=== PATIENT | male | born 1960 | race American Indian/Alaskan Native ===

== ENCOUNTER 2017-02-18 14:13 | Emergency (ER) | payer SELFPAY ==
[2017-02-18 15:29] VITALS: BP 162/88
--- NOTE | 2017-02-18 18:16 | Emergency Department Report ---
ED Lower Extremity HPI - General Chief Complaint: Extremity Injury, Lower Stated Complaint: LEFT ANKLE SWELLING Time Seen by Provider: 02/18/17 18:10 Source: patient Mode of arrival: Ambulatory Limitations: No Limitations - History of Present Illness Initial Comments: This is a 56-year-old male nontoxic, well nourished in appearance, no acute signs of distress presents to the ED complaining of left ankle swelling 2 week period based that he has a history of gout in the same region and takes colchicine 0.6 mg that is provided by Jacinta Garcia NP. Patient stated he was not able to follow up with his provider due to no availability of appointments and stated he came to the ER to get a refill of his colchicine. He denies any trauma to the region. Denies fever, chills, nausea, vomiting, chest and short of breath. Denies numbness or tingling. Denies joint redness. Denies decrease in motion or abnormal gait. Patient denies any allergies or past medical history. Complaint: ankle injury -: Gradual, week(s) (2) Injury: Ankle: Left Severity: mild Severity scale (0 -10): 4 Improves With: other (Colchicine) Worsens With: nothing Associated Symptoms: swelling, ambulatory. denies: snap/pop sensation, numbness , tingling, unable to bear weight, able to partially bear weight - Related Data Previous Rx's Medication Instructions Recorded Last Taken Type Metoprolol [Lopressor TAB] 25 mg PO BID #60 tablet 03/09/16 Unknown Rx amLODIPine 10 mg PO DAILY #60 03/09/16 Unknown Rx HYDROcodone/APAP 5-325 [Hiram 1 each PO Q6HR PRN #12 tablet 03/12/16 Unknown Rx 5-325 mg TAB] Ibuprofen [Motrin] 600 mg PO Q8H PRN #21 tablet 03/12/16 Unknown Rx methylPREDNISolone [Medrol] 4 mg PO QAM #1 tab.ds.pk 03/12/16 Unknown Rx Colchicine 0.6 mg PO DAILY #30 capsule 02/18/17 Unknown Rx Allergies Allergy/AdvReac Type Severity Reaction Status Date / Time No Known Allergies Allergy Verified 03/09/16 03:20 ED Review of Systems ROS: Stated complaint: LEFT ANKLE SWELLING Other details as noted in HPI Constitutional: denies: chills, fever Eyes: denies: eye pain, eye discharge, vision change ENT: denies: ear pain, throat pain Respiratory: denies: cough, shortness of breath, wheezing Cardiovascular: denies: chest pain, palpitations Endocrine: no symptoms reported Gastrointestinal: denies: abdominal pain, nausea, diarrhea Genitourinary: denies: urgency, dysuria Musculoskeletal: denies: back pain, joint swelling, arthralgia Skin: denies: rash, lesions Neurological: denies: headache, weakness, paresthesias Psychiatric: denies: anxiety, depression Hematological/Lymphatic: denies: easy bleeding, easy bruising ED Past Medical Hx - Past Medical History Previous Medical History?: Yes Hx Hypertension: Yes Hx Asthma: Yes Additional medical history: Gout - Surgical History Past Surgical History?: No - Social History Smoking Status: Current Every Day Smoker Substance Use Type: Prescribed - Medications Home Medications: Home Medications Medication Instructions Recorded Confirmed Last Taken Type Metoprolol [Lopressor TAB] 25 mg PO BID #60 tablet 03/09/16 Unknown Rx amLODIPine 10 mg PO DAILY #60 03/09/16 Unknown Rx HYDROcodone/APAP 5-325 [Hiram 1 each PO Q6HR PRN #12 tablet 03/12/16 Unknown Rx 5-325 mg TAB] Ibuprofen [Motrin] 600 mg PO Q8H PRN #21 tablet 03/12/16 Unknown Rx methylPREDNISolone [Medrol] 4 mg PO QAM #1 tab.ds.pk 03/12/16 Unknown Rx Colchicine 0.6 mg PO DAILY #30 capsule 02/18/17 Unknown Rx ED Physical Exam - General Limitations: No Limitations General appearance: alert, in no apparent distress - Head Head exam: Present: atraumatic, normocephalic, normal inspection - Eye Eye exam: Present: normal appearance, PERRL, EOMI. Absent: scleral icterus, conjunctival injection, nystagmus, periorbital swelling, periorbital tenderness Pupils: Present: normal accommodation - ENT ENT exam: Present: normal exam, normal orophraynx, mucous membranes moist, TM's normal bilaterally, normal external ear exam - Neck Neck exam: Present: normal inspection, full ROM. Absent: tenderness, meningismus, lymphadenopathy, thyromegaly - Respiratory Respiratory exam: Present: normal lung sounds bilaterally. Absent: respiratory distress, wheezes, rales, rhonchi, stridor, chest wall tenderness, accessory muscle use, decreased breath sounds, prolonged expiratory - Cardiovascular Cardiovascular Exam: Present: regular rate, normal rhythm, normal heart sounds. Absent: bradycardia, tachycardia, irregular rhythm, systolic murmur, diastolic murmur, rubs, gallop - GI/Abdominal GI/Abdominal exam: Present: soft, normal bowel sounds. Absent: distended, tenderness, guarding, rebound, rigid, diminished bowel sounds - Rectal Rectal exam: Present: deferred - Extremities Exam Extremities exam: Present: normal inspection, full ROM, tenderness, normal capillary refill. Absent: pedal edema, joint swelling, calf tenderness - Expanded Lower Extremity Exam Left Hip exam: Present: normal inspection, full ROM Upper Leg exam: Present: normal inspection, full ROM Knee exam: Present: normal inspection, full ROM Lower Leg exam: Present: normal inspection, full ROM. Absent: Martin's sign Ankle exam: Present: normal inspection, full ROM, tenderness, swelling. Absent : abrasion, laceration, ecchymosis, deformity, crepidus, dislocation, erythema, anterior draw sign Foot/Toe exam: Present: normal inspection, full ROM Neuro vascular tendon exam: Present: no vascular compromise. Absent: pulse deficit, abnormal cap refill, motor deficit, tendon deficit, extremity cold to touch, pallor, abnormal 2-point discrimination, decreased fine/light touch, foot drop, peroneal nerve deficit, significant pain with passive ROM of distal joint Gait: Positive: observed and normal - Back Exam Back exam: Present: normal inspection, full ROM. Absent: tenderness, CVA tenderness (R), CVA tenderness (L), muscle spasm, paraspinal tenderness, vertebral tenderness, rash noted - Neurological Exam Neurological exam: Present: alert, oriented X3, CN II-XII intact, normal gait, reflexes normal - Psychiatric Psychiatric exam: Present: normal affect, normal mood - Skin Skin exam: Present: warm, dry, intact, normal color. Absent: rash ED Course Vital Signs 02/18/17 15:25 Temperature 97.5 F L Pulse Rate 73 Respiratory 18 Rate Blood Pressure 162/88 O2 Sat by Pulse 97 Oximetry - Reevaluation(s) Reevaluation #1: 02/18/17 18:15 Patient is speaking in full sentences with no signs of distress noted. ED Lower Extremity MDM - Medical Decision Making This 56-year-old male that presents with gout. Patient received prednisone on 25 mg IM ED. Patient's request for refill of colchicine. Patient did receive a refill for colchicine. Patient was instructed to follow-up with a primary care doctor in 3-5 days or if symptoms worsen and continue return to emergency room as soon as possible possible. At time time of discharge, the patient does not seem toxic or ill in appearance. No acute signs of distress noted. Patient agrees to discharge treatment plan of care. No further questions noted by the patient. Critical care attestation.: If time is entered above; I have spent that time in minutes in the direct care of this critically ill patient, excluding procedure time. 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 Prescriptions: Colchicine 0.6 mg PO DAILY #30 capsule Referrals: PRIMARY MD ESTRADA [Primary Care Provider] - 3-5 Days ANALISA MENJIVAR MD [Staff Physician] - 3-5 Days [facility] [Outside] - 3-5 Days [facility] [Outside] - 3-5 Days Forms: Work/School Release Form(ED)
== END 2017-02-18 18:46 | disposition home or self-care (01) ==
LOC: ED 14:13
DX: M10.9 Gout, unspecified (principal); I10 Essential (primary) hypertension; F17.210 Nicotine dependence, cigarettes, uncomplicated
CPT/HCPCS: 96372; 99282; J2930

== ENCOUNTER 2017-08-23 13:02 | Emergency (ER) | payer SELFPAY ==
[2017-08-23] MEDS ORDERED: CATAPRES PO ONE (13:35)
[2017-08-23] MEDS ORDERED: CATAPRES ONE (15:37)
--- NOTE | 2017-08-23 18:45 | Emergency Department Report ---
HPI - General Chief Complaint: High BP Time Seen by Provider: 08/23/17 18:25 - HPI HPI: 56-year-old male has been noncompliant with his medications. Presents to ED with elevated blood pressures. He also complained of left ankle swelling, pain , redness secondary to his history of gout. He denies any fever, chills, night sweats. He is able to ambulate without difficulty. Patient denies any shortness of breath. ED Past Medical Hx - Past Medical History Previous Medical History?: Yes Hx Hypertension: Yes Hx Asthma: Yes Additional medical history: Gout - Surgical History Past Surgical History?: No - Social History Smoking Status: Never Smoker - Medications Home Medications: Home Medications Medication Instructions Recorded Confirmed Last Taken Type Metoprolol [Lopressor TAB] 25 mg PO BID #60 tablet 03/09/16 Unknown Rx HYDROcodone/APAP 5-325 [[place] 1 each PO Q6HR PRN #12 tablet 03/12/16 Unknown Rx 5-325 mg TAB] Ibuprofen [Motrin] 600 mg PO Q8H PRN #21 tablet 03/12/16 Unknown Rx Colchicine 0.6 mg PO DAILY #30 capsule 02/18/17 Unknown Rx ALBUTEROL Inhaler [ProAir HFA 2 puff IH QID PRN #1 inhalation 08/23/17 Unknown Rx Inhaler] Losartan Potassium [Cozaar] 100 mg PO DAILY #30 tablet 08/23/17 Unknown Rx amLODIPine 10 mg PO DAILY #60 08/23/17 Unknown Rx methylPREDNISolone [Medrol Dose 4 mg PO QAM #1 tab.ds.pk 08/23/17 Unknown Rx Chi] ED Review of Systems ROS: Stated complaint: HYPERTENSIVE/GOUT Other details as noted in HPI Comment: All other systems reviewed and negative Constitutional: no symptoms reported Gastrointestinal: denies: abdominal pain, nausea Genitourinary: denies: urgency Musculoskeletal: joint swelling, arthralgia Physical Exam - Physical Exam Vital Signs: Vital Signs 08/23/17 08/23/17 13:24 15:39 Temperature 97.5 F L Pulse Rate 72 72 Respiratory 18 Rate Blood Pressure 191/118 191/118 O2 Sat by Pulse 97 Oximetry Physical Exam: Physical Exam: - General Limitations: No Limitations General appearance: alert, in no apparent distress, obese - Head Head exam: Present: atraumatic, normocephalic - Eye Eye exam: Present: normal appearance - ENT ENT exam: Present: mucous membranes moist - Neck Neck exam: Present: normal inspection - Respiratory Respiratory exam: Present: normal lung sounds bilaterally. Absent: respiratory distress - Cardiovascular Cardiovascular Exam: Present: normal rhythm, tachycardia. Absent: systolic murmur, diastolic murmur, rubs, gallop - GI/Abdominal GI/Abdominal exam: Present: soft, normal bowel sounds - Extremities Exam Extremities exam: Present: Left ankle tenderness, mild edema, good range of motion. - Back Exam Back exam: Present: normal inspection - Neurological Exam Neurological exam: Present: alert, oriented X3 - Psychiatric Psychiatric exam: normal affect and mood - Skin Skin exam: Present: warm, dry, intact, normal color. Absent: rash ED Course Vital Signs 08/23/17 08/23/17 13:24 15:39 Temperature 97.5 F L Pulse Rate 72 72 Respiratory 18 Rate Blood Pressure 191/118 191/118 O2 Sat by Pulse 97 Oximetry ED Medical Decision Making - Lab Data Result diagrams: 08/23/17 18:35 08/23/17 18:35 Critical care attestation.: If time is entered above; I have spent that time in minutes in the direct care of this critically ill patient, excluding procedure time. ED Disposition Clinical Impression: Acute gouty arthritis Hypertension Qualifiers: Hypertension type: essential hypertension Qualified Code(s): I10 - Essential ( primary) hypertension Asthma Qualifiers: Asthma severity: mild Asthma persistence: intermittent Asthma complication type : uncomplicated Qualified Code(s): J45.20 - Mild intermittent asthma, uncomplicated Disposition: - TO HOME OR SELFCARE Is pt being admited?: No Does the pt Need Aspirin: No Condition: Stable Instructions: Asthma (ED), Hypertension (ED) Prescriptions: ALBUTEROL Inhaler [ProAir HFA Inhaler] 2 puff IH QID PRN #1 inhalation PRN Reason: Shortness Of Breath amLODIPine 10 mg PO DAILY #60 Losartan Potassium [Cozaar] 100 mg PO DAILY #30 tablet methylPREDNISolone [Medrol Dose Chi] 4 mg PO QAM #1 tab.ds.pk Referrals: PRIMARY CARE, [Primary Care Provider] - 3-5 Days Forms: Work/School Release Form(ED)
[2017-08-23 18:47] LABS: Basophils # (Auto) 0.1 K/mm3 (0.0-0.1); Eosinophils # (Auto) 0.2 K/mm3 (0.0-0.4); Eosinophils % (Auto) 4.3 % (0.0-4.3); Hematocrit 43.4 % (35.5-45.6); Hemoglobin 14.2 gm/dl (11.8-15.2); Lymphocytes # (Auto) 1.5 K/mm3 (1.2-5.4); Lymphocytes % (Auto) 26.5 % (13.4-35.0); Mean Corpuscular HGB Conc 33 % (32-34); Mean Corpuscular Hemoglobin 27 pg (28-32); Mean Corpuscular Volume 82 fl (84-94); Monocytes # (Auto) 0.4 K/mm3 (0.0-0.8); Monocytes % (Auto) 7.2 % (0.0-7.3); Platelet Count 154 K/mm3 (140-440); Red Blood Count 5.33 M/mm3 (3.65-5.03); Red Cell Distribution Width 16.7 % (13.2-15.2)
[2017-08-23 19:14] LABS: Alanine Aminotransferase 16 units/L (7-56); BUN/Creatinine Ratio 12; Blood Urea Nitrogen 21 mg/dL (9-20); Calcium 8.4 mg/dL (8.4-10.2); Hemolysis Index 8
[2017-08-23 19:27] VITALS: BP 146/89
== END 2017-08-23 20:37 | disposition home or self-care (01) ==
LOC: ED 13:02
DX: M10.9 Gout, unspecified (principal); I10 Essential (primary) hypertension; J45.909 Unspecified asthma, uncomplicated
CPT/HCPCS: 36415; 80053; 84484; 85025; 99283

== ENCOUNTER 2017-10-26 10:39 | Emergency (ER) | payer OTHER ==
[2017-10-26 12:36] LABS: Basophils % (Auto) 0.5 % (0.0-1.8); Eosinophils # (Auto) 0.2 K/mm3 (0.0-0.4); Hematocrit 44.4 % (35.5-45.6); Hemoglobin 14.9 gm/dl (11.8-15.2); Lymphocytes # (Auto) 0.8 K/mm3 (1.2-5.4); Lymphocytes % (Auto) 9.7 % (13.4-35.0); Mean Corpuscular HGB Conc 34 % (32-34); Mean Corpuscular Hemoglobin 27 pg (28-32); Mean Corpuscular Volume 81 fl (84-94); Monocytes # (Auto) 0.5 K/mm3 (0.0-0.8); Monocytes % (Auto) 5.7 % (0.0-7.3); Platelet Count 141 K/mm3 (140-440); Red Blood Count 5.52 M/mm3 (3.65-5.03); Red Cell Distribution Width 16.5 % (13.2-15.2)
[2017-10-26 12:59] LABS: BUN/Creatinine Ratio TNR; Blood Urea Nitrogen TNR mg/dL (9-20)
[2017-10-26 13:00] LABS: Calcium TNR mg/dL (8.4-10.2); Hemolysis Index TNR
[2017-10-26] MEDS ORDERED: NORVASC PO ONE (13:01)
[2017-10-26] MEDS ORDERED: COZAAR PO ONE (13:01)
--- NOTE | 2017-10-26 14:05 | Emergency Department Report ---
ED General Adult HPI - General Chief complaint: High BP Stated complaint: C/O SICK/WEAK Time Seen by Provider: 10/26/17 12:13 Source: patient Mode of arrival: Ambulatory Limitations: No Limitations - History of Present Illness Initial comments: Patient woke up this morning with generalized weakness and fatigue. Patient says that he hasn't had his blood pressure medication in 2 weeks. He feels like this when his blood pressure is high. Denies pain. Afebrile. - Related Data Previous Rx's Medication Instructions Recorded Last Taken Type Metoprolol [Lopressor TAB] 25 mg PO BID #60 tablet 03/09/16 Unknown Rx HYDROcodone/APAP 5-325 [[place]isco 1 each PO Q6HR PRN #12 tablet 03/12/16 Unknown Rx 5-325 mg TAB] Ibuprofen [Motrin] 600 mg PO Q8H PRN #21 tablet 03/12/16 Unknown Rx Colchicine 0.6 mg PO DAILY #30 capsule 02/18/17 Unknown Rx ALBUTEROL Inhaler [ProAir HFA 2 puff IH QID PRN #1 inhalation 08/23/17 Unknown Rx Inhaler] Losartan Potassium [Cozaar] 100 mg PO DAILY #30 tablet 08/23/17 Unknown Rx amLODIPine 10 mg PO DAILY #60 08/23/17 Unknown Rx methylPREDNISolone [Medrol Dose 4 mg PO QAM #1 tab.ds.pk 08/23/17 Unknown Rx Chi] Losartan [Cozaar] 100 mg PO QDAY #60 tablet 10/26/17 Unknown Rx amLODIPine [Norvasc] 10 mg PO DAILY #60 tab 10/26/17 Unknown Rx Allergies Allergy/AdvReac Type Severity Reaction Status Date / Time No Known Allergies Allergy Verified 03/09/16 03:20 ED Review of Systems ROS: Stated complaint: C/O SICK/WEAK Other details as noted in HPI Comment: All other systems reviewed and negative Constitutional: malaise Neurological: weakness ED Past Medical Hx - Past Medical History Previous Medical History?: Yes Hx Hypertension: Yes Hx Asthma: Yes Additional medical history: Gout - Surgical History Past Surgical History?: No - Social History Smoking Status: Never Smoker Substance Use Type: None - Medications Home Medications: Home Medications Medication Instructions Recorded Confirmed Last Taken Type Metoprolol [Lopressor TAB] 25 mg PO BID #60 tablet 03/09/16 Unknown Rx HYDROcodone/APAP 5-325 [[place]isco 1 each PO Q6HR PRN #12 tablet 03/12/16 Unknown Rx 5-325 mg TAB] Ibuprofen [Motrin] 600 mg PO Q8H PRN #21 tablet 03/12/16 Unknown Rx Colchicine 0.6 mg PO DAILY #30 capsule 02/18/17 Unknown Rx ALBUTEROL Inhaler [ProAir HFA 2 puff IH QID PRN #1 inhalation 08/23/17 Unknown Rx Inhaler] Losartan Potassium [Cozaar] 100 mg PO DAILY #30 tablet 08/23/17 Unknown Rx amLODIPine 10 mg PO DAILY #60 08/23/17 Unknown Rx methylPREDNISolone [Medrol Dose 4 mg PO QAM #1 tab.ds.pk 08/23/17 Unknown Rx Chi] Losartan [Cozaar] 100 mg PO QDAY #60 tablet 10/26/17 Unknown Rx amLODIPine [Norvasc] 10 mg PO DAILY #60 tab 10/26/17 Unknown Rx ED Physical Exam - General Limitations: No Limitations General appearance: alert, in no apparent distress - Head Head exam: Present: atraumatic, normocephalic - Eye Eye exam: Present: normal appearance - ENT ENT exam: Present: mucous membranes moist - Neck Neck exam: Present: normal inspection - Respiratory Respiratory exam: Present: normal lung sounds bilaterally. Absent: respiratory distress - Cardiovascular Cardiovascular Exam: Present: regular rate, normal rhythm. Absent: systolic murmur, diastolic murmur, rubs, gallop - GI/Abdominal GI/Abdominal exam: Present: soft. Absent: tenderness - Rectal Rectal exam: Present: deferred - Extremities Exam Extremities exam: Present: normal inspection - Back Exam Back exam: Present: normal inspection - Neurological Exam Neurological exam: Present: alert, oriented X3, other (strength 5/5 in all extremities) - Psychiatric Psychiatric exam: Present: normal affect, normal mood - Skin Skin exam: Present: warm, dry, intact, normal color. Absent: rash ED Course Vital Signs 10/26/17 10/26/17 10/26/17 11:07 14:00 14:35 Temperature 97.5 F L Pulse Rate 87 70 87 Respiratory 18 Rate Blood Pressure 196/115 199/117 196/115 O2 Sat by Pulse 98 Oximetry ED Medical Decision Making - Lab Data Result diagrams: 10/26/17 12:03 10/26/17 14:59 - Medical Decision Making 56-year-old male with past medical history of hypertension, medication noncompliance who presents to the ER with generalized fatigue/malaise. Patient is well-appearing. Vital signs are stable. He is resting watching TV. Labwork shows glucose of 74. He was given something to eat, which helped his symptoms. Patient is hypertensive. He was given his home blood pressure medication. I give him a prescription for 1 month refill of the medication. I told him follow-up with his family doctor for further refills of his home medication. Patient is cleared for discharge. Pt has no focal weakness on my evaluation. Low concern for emergent pathology at this time. - Differential Diagnosis electrolyte abnormality, htn urgency, viral syndrome Critical care attestation.: If time is entered above; I have spent that time in minutes in the direct care of this critically ill patient, excluding procedure time. ED Disposition Clinical Impression: Hypertension Disposition: DC-01 TO HOME OR SELFCARE Is pt being admited?: No Does the pt Need Aspirin: No Condition: Stable Instructions: Hypertension (ED) Prescriptions: amLODIPine [Norvasc] 10 mg PO DAILY #60 tab Losartan [Cozaar] 100 mg PO QDAY #60 tablet Referrals: PRIMARY CARE, [Primary Care Provider] - 3-5 Days
[2017-10-26 14:49] LABS: Blood Urea Nitrogen TNR mg/dL (9-20)
[2017-10-26 14:50] LABS: BUN/Creatinine Ratio TNR; Calcium TNR mg/dL (8.4-10.2); Hemolysis Index TNR
[2017-10-26 15:40] LABS: BUN/Creatinine Ratio 14; Blood Urea Nitrogen 19 mg/dL (9-20); Calcium 9.3 mg/dL (8.4-10.2); Hemolysis Index 15
[2017-10-26 16:29] VITALS: BP 156/68
== END 2017-10-26 17:00 | disposition home or self-care (01) ==
LOC: ED 10:39
DX: I10 Essential (primary) hypertension (principal); J45.909 Unspecified asthma, uncomplicated; M10.9 Gout, unspecified
CPT/HCPCS: 36415; 80048; 85025; 99283

== ENCOUNTER 2017-12-26 11:45 | Emergency (ER) | payer SELFPAY ==
[2017-12-26 12:26] VITALS: BP 150/70
--- NOTE | 2017-12-26 12:31 | Emergency Department Report ---
ED General Adult HPI - General Chief complaint: High BP Stated complaint: HYPERTENSION Time Seen by Provider: 12/26/17 12:18 Source: patient Mode of arrival: Ambulatory Limitations: No Limitations - History of Present Illness Initial comments: She is a [id number] male with history of hypertension who is presenting with elevated blood pressure and knees for refill of his meds. Patient denies any chest pain shortness of breath fevers chills nausea vomiting or focal neurological deficit at this time. Blood pressure was 179/103 on arrival. Patient was taken his last blood pressure medicines - Related Data Previous Rx's Medication Instructions Recorded Last Taken Type Metoprolol [Lopressor TAB] 25 mg PO BID #60 tablet 03/09/16 Unknown Rx HYDROcodone/APAP 5-325 [[place] 1 each PO Q6HR PRN #12 tablet 03/12/16 Unknown Rx 5-325 mg TAB] Ibuprofen [Motrin] 600 mg PO Q8H PRN #21 tablet 03/12/16 Unknown Rx Colchicine 0.6 mg PO DAILY #30 capsule 02/18/17 Unknown Rx ALBUTEROL Inhaler [ProAir HFA 2 puff IH QID PRN #1 inhalation 08/23/17 Unknown Rx Inhaler] Losartan Potassium [Cozaar] 100 mg PO DAILY #30 tablet 08/23/17 Unknown Rx methylPREDNISolone [Medrol Dose 4 mg PO QAM #1 tab.ds.pk 08/23/17 Unknown Rx Chi] amLODIPine [Norvasc] 10 mg PO DAILY #60 tab 10/26/17 Unknown Rx Losartan [Cozaar] 100 mg PO QDAY #30 tablet 12/26/17 Unknown Rx amLODIPine 10 mg PO DAILY #30 12/26/17 Unknown Rx Allergies Allergy/AdvReac Type Severity Reaction Status Date / Time No Known Allergies Allergy Verified 12/26/17 11:47 ED Review of Systems ROS: Stated complaint: HYPERTENSION Other details as noted in HPI Comment: All other systems reviewed and negative ED Past Medical Hx - Past Medical History Hx Hypertension: Yes Hx Asthma: Yes Additional medical history: Gout - Surgical History Past Surgical History?: No - Social History Smoking Status: Never Smoker Substance Use Type: None - Medications Home Medications: Home Medications Medication Instructions Recorded Confirmed Last Taken Type Metoprolol [Lopressor TAB] 25 mg PO BID #60 tablet 03/09/16 Unknown Rx HYDROcodone/APAP 5-325 [[place] 1 each PO Q6HR PRN #12 tablet 03/12/16 Unknown Rx 5-325 mg TAB] Ibuprofen [Motrin] 600 mg PO Q8H PRN #21 tablet 03/12/16 Unknown Rx Colchicine 0.6 mg PO DAILY #30 capsule 02/18/17 Unknown Rx ALBUTEROL Inhaler [ProAir HFA 2 puff IH QID PRN #1 inhalation 08/23/17 Unknown Rx Inhaler] Losartan Potassium [Cozaar] 100 mg PO DAILY #30 tablet 08/23/17 Unknown Rx methylPREDNISolone [Medrol Dose 4 mg PO QAM #1 tab.ds.pk 08/23/17 Unknown Rx Cih] amLODIPine [Norvasc] 10 mg PO DAILY #60 tab 10/26/17 Unknown Rx Losartan [Cozaar] 100 mg PO QDAY #30 tablet 12/26/17 Unknown Rx amLODIPine 10 mg PO DAILY #30 12/26/17 Unknown Rx ED Physical Exam - General Limitations: No Limitations General appearance: alert, in no apparent distress - Head Head exam: Present: atraumatic, normocephalic - Eye Eye exam: Present: normal appearance - ENT ENT exam: Present: mucous membranes moist - Neck Neck exam: Present: normal inspection - Respiratory Respiratory exam: Present: normal lung sounds bilaterally. Absent: respiratory distress, wheezes, rales, rhonchi - Cardiovascular Cardiovascular Exam: Present: regular rate, normal rhythm. Absent: systolic murmur, diastolic murmur, rubs, gallop - GI/Abdominal GI/Abdominal exam: Present: soft, normal bowel sounds. Absent: distended, tenderness, guarding, rebound - Rectal Rectal exam: Present: deferred - Extremities Exam Extremities exam: Present: normal inspection - Back Exam Back exam: Present: normal inspection - Neurological Exam Neurological exam: Present: alert, oriented X3 - Psychiatric Psychiatric exam: Present: normal affect, normal mood - Skin Skin exam: Present: warm, dry, intact, normal color. Absent: rash ED Course Vital Signs 12/26/17 12/26/17 11:50 12:25 Temperature 98.4 F 98.2 F Pulse Rate 97 H 68 Respiratory 18 16 Rate Blood Pressure 179/103 Blood Pressure 150/70 [Left] O2 Sat by Pulse 97 97 Oximetry ED Medical Decision Making - Medical Decision Making Patient's blood pressure has been refilled the patient be referred to [facility]. Critical care attestation.: If time is entered above; I have spent that time in minutes in the direct care of this critically ill patient, excluding procedure time. ED Disposition Clinical Impression: Hypertensive urgency Disposition: DC-01 TO HOME OR SELFCARE Is pt being admited?: No Does the pt Need Aspirin: No Condition: Stable Instructions: Hypertension (ED) Prescriptions: amLODIPine 10 mg PO DAILY #30 Losartan [Cozaar] 100 mg PO QDAY #30 tablet Referrals: [facility] [Outside] - 3-5 Days
== END 2017-12-26 12:40 | disposition home or self-care (01) ==
LOC: ED 11:45
DX: I10 Essential (primary) hypertension (principal); I16.0 Hypertensive urgency; J45.909 Unspecified asthma, uncomplicated
CPT/HCPCS: 99282

== ENCOUNTER 2018-06-29 14:08 | Emergency (ER) | payer SELFPAY ==
--- NOTE | 2018-06-29 15:58 | Emergency Department Report ---
HPI - General Chief Complaint: Extremity Injury, Lower Time Seen by Provider: 06/29/18 15:55 - HPI HPI: This is a 57-year-old male with a history of gout arthritis who presents ED complaining of gouty arthritis flareup of the right knee and left big toe. Patient states that he is out of his medication and usually takes indomethacin for his flareups. He denies any injuries, trauma, falls. Explained he denies chest pain, shortness of breath, dizziness, difficulty walking or loss of sensation. ED Past Medical Hx - Past Medical History Previous Medical History?: Yes Hx Hypertension: Yes Hx Asthma: Yes Additional medical history: Gout - Surgical History Past Surgical History?: No - Social History Smoking Status: Never Smoker Substance Use Type: None - Medications Home Medications: Home Medications Medication Instructions Recorded Confirmed Last Taken Type Metoprolol [Lopressor TAB] 25 mg PO BID #60 tablet 03/09/16 Unknown Rx HYDROcodone/APAP 5-325 [[place] 1 each PO Q6HR PRN #12 tablet 03/12/16 Unknown Rx 5-325 mg TAB] Colchicine 0.6 mg PO DAILY #30 capsule 02/18/17 Unknown Rx ALBUTEROL Inhaler (OR & NICU) 2 puff IH QID PRN #1 inhalation 08/23/17 Unknown Rx [ProAir HFA Inhaler] Losartan Potassium [Cozaar] 100 mg PO DAILY #30 tablet 08/23/17 Unknown Rx methylPREDNISolone [Medrol Dose 4 mg PO QAM #1 tab.ds.pk 08/23/17 Unknown Rx Chi] amLODIPine [Norvasc] 10 mg PO DAILY #60 tab 10/26/17 Unknown Rx Losartan [Cozaar] 100 mg PO QDAY #30 tablet 12/26/17 Unknown Rx amLODIPine 10 mg PO DAILY #30 12/26/17 Unknown Rx Amlodipine Besylate [Norvasc] 10 mg PO QAM 14 Days #14 tablet 04/26/18 Unknown Rx Losartan [Cozaar] 100 mg PO QDAY 30 Days #30 tablet 04/26/18 Unknown Rx predniSONE [Deltasone] 50 mg PO QDAY 3 Days #3 tab 04/26/18 Unknown Rx Ibuprofen [Motrin 600 MG tab] 600 mg PO Q8H PRN #21 tablet 06/29/18 Unknown Rx Indomethacin 50 mg PO Q8H #40 capsule 06/29/18 Unknown Rx ED Review of Systems ROS: Stated complaint: GOUT IN RIGHT KNEE/LEFT FOOT Other details as noted in HPI Comment: All other systems reviewed and negative Physical Exam - Physical Exam Physical Exam: GENERAL: Alert and oriented x3, no apparent distress, Normal Gait, atraumatic. HEAD: Head is normocephalic and a-traumatic. LUNGS: Symetrical with respiration, No wheezing, no rales or crackles, CTAB. HEART: S1, S2 present, regular rate and rhythm without murmur, no rubs, no gal lops. Non tender to palpation EXTREMITIES/MUSCULOSKELETAL: No cyanosis, clubbing, rash, lesions or edema. Full ROM bilaterally. LE Pulses 2+ bilaterally. LE 5+ strength bilaterally, no calf tenderness, Homans sign negative. Right knee mildly tender to palpation, nonerythematous, slightly warm. No deformity. NEUROLOGIC: The patient is cooperative with no focal neurologic deficits. SKIN: Warm and dry, No lesions, No ulceration or induration present. Critical care attestation.: If time is entered above; I have spent that time in minutes in the direct care of this critically ill patient, excluding procedure time. ED Disposition Clinical Impression: Acute gouty arthritis, Gout of right knee Disposition: DC-01 TO HOME OR SELFCARE Is pt being admited?: No Does the pt Need Aspirin: No Condition: Stable Instructions: Acute Gouty Arthritis (ED) Additional Instructions: f/u with pcp as discussed take your meds as Prescribed If worsening sx please return to ED Prescriptions: Ibuprofen [Motrin 600 MG tab] 600 mg PO Q8H PRN #21 tablet PRN Reason: Pain Indomethacin 50 mg PO Q8H #40 capsule Referrals: [facility] [Outside] - 3-5 Days [facility] [Outside] - 3-5 Days Forms: Work/School Release Form Time of Disposition: 16:04
== END 2018-06-29 16:20 | disposition home or self-care (01) ==
LOC: ED 14:08
DX: M10.9 Gout, unspecified (principal); J45.909 Unspecified asthma, uncomplicated; I10 Essential (primary) hypertension; Z79.899 Other long term (current) drug therapy
CPT/HCPCS: 99281

== ENCOUNTER 2018-08-29 13:37 | Emergency (ER) | payer OTHER ==
[2018-08-29 14:27] VITALS: BP 158/105
--- NOTE | 2018-08-29 14:30 | Emergency Department Report ---
ED General Adult HPI - General Chief complaint: Medical Clearance Stated complaint: REFILL FOR BP MEDICATION Time Seen by Provider: 08/29/18 14:24 Source: patient Mode of arrival: Ambulatory Limitations: No Limitations - History of Present Illness Initial comments: 57 y/o male presents to ED requesting BP mediation refill. no symptoms -: Gradual Severity scale (0 -10): 0 Improves with: none Worsens with: none Treatments Prior to Arrival: none - Related Data Previous Rx's Medication Instructions Recorded Last Taken Type Metoprolol [Lopressor TAB] 25 mg PO BID #60 tablet 03/09/16 Unknown Rx HYDROcodone/APAP 5-325 [[place] 1 each PO Q6HR PRN #12 tablet 03/12/16 Unknown Rx 5-325 mg TAB] Colchicine 0.6 mg PO DAILY #30 capsule 02/18/17 Unknown Rx ALBUTEROL Inhaler (OR & NICU) 2 puff IH QID PRN #1 inhalation 08/23/17 Unknown Rx [ProAir HFA Inhaler] Losartan Potassium [Cozaar] 100 mg PO DAILY #30 tablet 08/23/17 Unknown Rx methylPREDNISolone [Medrol Dose 4 mg PO QAM #1 tab.ds.pk 08/23/17 Unknown Rx Chi] amLODIPine [Norvasc] 10 mg PO DAILY #60 tab 10/26/17 Unknown Rx Losartan [Cozaar] 100 mg PO QDAY #30 tablet 12/26/17 Unknown Rx amLODIPine 10 mg PO DAILY #30 12/26/17 Unknown Rx Amlodipine Besylate [Norvasc] 10 mg PO QAM 14 Days #14 tablet 04/26/18 Unknown Rx Losartan [Cozaar] 100 mg PO QDAY 30 Days #30 tablet 04/26/18 Unknown Rx predniSONE [Deltasone] 50 mg PO QDAY 3 Days #3 tab 04/26/18 Unknown Rx Ibuprofen [Motrin 600 MG tab] 600 mg PO Q8H PRN #21 tablet 06/29/18 Unknown Rx Indomethacin 50 mg PO Q8H #40 capsule 06/29/18 Unknown Rx Losartan [Cozaar] 100 mg PO QDAY #30 tablet 08/29/18 Unknown Rx Allergies Allergy/AdvReac Type Severity Reaction Status Date / Time No Known Allergies Allergy Verified 06/29/18 15:54 ED Review of Systems ROS: Stated complaint: REFILL FOR BP MEDICATION Other details as noted in HPI Constitutional: denies: chills, fever Eyes: denies: eye pain, eye discharge, vision change ENT: denies: ear pain, throat pain Respiratory: denies: cough, shortness of breath, wheezing Cardiovascular: denies: chest pain, palpitations Endocrine: no symptoms reported Gastrointestinal: denies: abdominal pain, nausea, diarrhea Genitourinary: denies: urgency, dysuria Musculoskeletal: denies: back pain, joint swelling, arthralgia Skin: denies: rash, lesions Neurological: denies: headache, weakness, paresthesias Psychiatric: denies: anxiety, depression Hematological/Lymphatic: denies: easy bleeding, easy bruising ED Past Medical Hx - Past Medical History Hx Hypertension: Yes Hx Asthma: Yes Additional medical history: Gout - Surgical History Past Surgical History?: No - Social History Smoking Status: Never Smoker Substance Use Type: None - Medications Home Medications: Home Medications Medication Instructions Recorded Confirmed Last Taken Type Metoprolol [Lopressor TAB] 25 mg PO BID #60 tablet 03/09/16 Unknown Rx HYDROcodone/APAP 5-325 [[place] 1 each PO Q6HR PRN #12 tablet 03/12/16 Unknown Rx 5-325 mg TAB] Colchicine 0.6 mg PO DAILY #30 capsule 02/18/17 Unknown Rx ALBUTEROL Inhaler (OR & NICU) 2 puff IH QID PRN #1 inhalation 08/23/17 Unknown Rx [ProAir HFA Inhaler] Losartan Potassium [Cozaar] 100 mg PO DAILY #30 tablet 08/23/17 Unknown Rx methylPREDNISolone [Medrol Dose 4 mg PO QAM #1 tab.ds.pk 08/23/17 Unknown Rx Chi] amLODIPine [Norvasc] 10 mg PO DAILY #60 tab 10/26/17 Unknown Rx Losartan [Cozaar] 100 mg PO QDAY #30 tablet 12/26/17 Unknown Rx amLODIPine 10 mg PO DAILY #30 12/26/17 Unknown Rx Amlodipine Besylate [Norvasc] 10 mg PO QAM 14 Days #14 tablet 04/26/18 Unknown Rx Losartan [Cozaar] 100 mg PO QDAY 30 Days #30 tablet 04/26/18 Unknown Rx predniSONE [Deltasone] 50 mg PO QDAY 3 Days #3 tab 04/26/18 Unknown Rx Ibuprofen [Motrin 600 MG tab] 600 mg PO Q8H PRN #21 tablet 06/29/18 Unknown Rx Indomethacin 50 mg PO Q8H #40 capsule 06/29/18 Unknown Rx Losartan [Cozaar] 100 mg PO QDAY #30 tablet 08/29/18 Unknown Rx ED Physical Exam - General Limitations: No Limitations General appearance: alert, in no apparent distress - Head Head exam: Present: atraumatic, normocephalic - Eye Eye exam: Present: normal appearance - ENT ENT exam: Present: mucous membranes moist - Neck Neck exam: Present: normal inspection - Respiratory Respiratory exam: Present: normal lung sounds bilaterally. Absent: respiratory distress - Cardiovascular Cardiovascular Exam: Present: regular rate, normal rhythm. Absent: systolic murmur, diastolic murmur, rubs, gallop - GI/Abdominal GI/Abdominal exam: Present: soft, normal bowel sounds - Rectal Rectal exam: Present: deferred - Extremities Exam Extremities exam: Present: normal inspection - Back Exam Back exam: Present: normal inspection - Neurological Exam Neurological exam: Present: alert, oriented X3 - Psychiatric Psychiatric exam: Present: normal affect, normal mood - Skin Skin exam: Present: warm, dry, intact, normal color. Absent: rash Critical care attestation.: If time is entered above; I have spent that time in minutes in the direct care of this critically ill patient, excluding procedure time. ED Disposition Clinical Impression: HTN (hypertension) Disposition: - TO HOME OR SELFCARE Is pt being admited?: No Does the pt Need Aspirin: No Condition: Stable Instructions: Hypertension (ED) Prescriptions: Losartan [Cozaar] 100 mg PO QDAY #30 tablet Referrals: [facility] [Provider Group] - 3-5 Days
== END 2018-08-29 14:52 | disposition home or self-care (01) ==
LOC: ED 13:37
DX: I10 Essential (primary) hypertension (principal); Z76.0 Encounter for issue of repeat prescription; J45.909 Unspecified asthma, uncomplicated

== ENCOUNTER 2019-09-20 18:37 | Emergency (ER) | payer OTHER ==
[2019-09-20 18:44] VITALS: BP 159/96
[2019-09-20] MEDS ORDERED: IBUPROFEN 800 MG TAB PO ONE (18:46)
[2019-09-20] MEDS ORDERED: predniSONE 20 MG TAB PO ONE (18:46)
--- NOTE | 2019-09-20 18:46 | Emergency Department Report ---
ED General Adult HPI - General Chief complaint: Extremity Injury, Lower Stated complaint: MED REFILL FOR GOUT Time Seen by Provider: 09/20/19 18:45 Source: patient Mode of arrival: Ambulatory Limitations: No Limitations - History of Present Illness Initial comments: Patient is a 58-year-old -[place] male who comes into the ER with left ankle pain. He states his pain is consistent with a gout. He has no trauma. He has been off his gout medicine for over a year. He states he has not needed it. Patient is ambulatory with a limp. Patient denies chest pain, shortness of breath, fever or chills. - Related Data Previous Rx's Medication Instructions Recorded Last Taken Type Albuterol INH(or & Nicu Only) 2 puff IH QID PRN #1 inhalation 08/23/17 Unknown Rx [ProAir HFA Inhaler] Amlodipine Besylate [Norvasc] 10 mg PO QAM 14 Days #14 tablet 04/26/18 Unknown Rx Metoprolol [Lopressor TAB] 25 mg PO BID #60 tablet 08/29/18 Unknown Rx Losartan [Cozaar] 100 mg PO QDAY 30 Days #30 tablet 09/02/19 Unknown Rx Mometasone Furoate [[place]] 1 gm TP BID #45 oint...g. 09/02/19 Unknown Rx amLODIPine 10 mg PO DAILY #30 tab 09/02/19 Unknown Rx Colchicine 0.6 mg PO DAILY #11 capsule 09/20/19 Unknown Rx Colchicine 0.6 mg PO DAILY #30 capsule 09/20/19 Unknown Rx Ibuprofen [Motrin] 800 mg PO Q8HR PRN #30 tablet 09/20/19 Unknown Rx predniSONE [Deltasone] 20 mg PO DAILY #5 tablet 09/20/19 Unknown Rx Allergies Allergy/AdvReac Type Severity Reaction Status Date / Time No Known Allergies Allergy Verified 06/29/18 15:54 ED Review of Systems ROS: Stated complaint: MED REFILL FOR GOUT Other details as noted in HPI Comment: All other systems reviewed and negative ED Past Medical Hx - Past Medical History Previous Medical History?: Yes Hx Hypertension: Yes Hx Asthma: Yes Additional medical history: Gout - Surgical History Past Surgical History?: No - Family History Family history: no significant - Social History Smoking Status: Never Smoker Substance Use Type: None - Medications Home Medications: Home Medications Medication Instructions Recorded Confirmed Last Taken Type Albuterol INH(or & [place] Only) 2 puff IH QID PRN #1 inhalation 08/23/17 Unknown Rx [ProAir HFA Inhaler] Amlodipine Besylate [Norvasc] 10 mg PO QAM 14 Days #14 tablet 04/26/18 Unknown Rx Metoprolol [Lopressor TAB] 25 mg PO BID #60 tablet 08/29/18 Unknown Rx Losartan [Cozaar] 100 mg PO QDAY 30 Days #30 tablet 09/02/19 Unknown Rx Mometasone Furoate [[place]] 1 gm TP BID #45 oint...g. 09/02/19 Unknown Rx amLODIPine 10 mg PO DAILY #30 tab 09/02/19 Unknown Rx Colchicine 0.6 mg PO DAILY #11 capsule 09/20/19 Unknown Rx Colchicine 0.6 mg PO DAILY #30 capsule 09/20/19 Unknown Rx Ibuprofen [Motrin] 800 mg PO Q8HR PRN #30 tablet 09/20/19 Unknown Rx predniSONE [Deltasone] 20 mg PO DAILY #5 tablet 09/20/19 Unknown Rx ED Physical Exam - General Limitations: No Limitations General appearance: alert, in no apparent distress - Head Head exam: Present: atraumatic, normocephalic - Eye Eye exam: Present: normal appearance - ENT ENT exam: Present: mucous membranes moist - Neck Neck exam: Present: normal inspection - Respiratory Respiratory exam: Present: normal lung sounds bilaterally. Absent: respiratory distress - Cardiovascular Cardiovascular Exam: Present: regular rate, normal rhythm. Absent: systolic m urmur, diastolic murmur, rubs, gallop - GI/Abdominal GI/Abdominal exam: Present: soft, normal bowel sounds - Rectal Rectal exam: Present: deferred - Extremities Exam Extremities exam: Present: normal inspection - Back Exam Back exam: Present: normal inspection - Neurological Exam Neurological exam: Present: alert, oriented X3 - Psychiatric Psychiatric exam: Present: normal affect, normal mood - Skin Skin exam: Present: warm, dry, intact, normal color. Absent: rash ED Course Vital Signs 09/20/19 18:39 Temperature 97.7 F Pulse Rate 98 H Respiratory 18 Rate Blood Pressure 159/96 O2 Sat by Pulse 96 Oximetry ED Medical Decision Making - Medical Decision Making Vital Signs 09/20/19 18:39 Temperature 97.7 F Pulse Rate 98 H Respiratory 18 Rate Blood Pressure 159/96 O2 Sat by Pulse 96 Oximetry Medicated for pain in the ER. Patient being discharged home with medication for gout and PCP follow-up plans. - Differential Diagnosis a/c gout no trauma Critical care attestation.: If time is entered above; I have spent that time in minutes in the direct care of this critically ill patient, excluding procedure time. ED Disposition Clinical Impression: Acute gouty arthritis, Ankle pain Disposition: TO HOME OR SELFCARE Is pt being admited?: No Does the pt Need Aspirin: No Condition: Stable Instructions: Acute Gouty Arthritis (ED) Additional Instructions: MED ORDERED TODAY FOLLOW UP WITH PCP REFERRAL BELOW READ ATTACHED INFO ABOUT DIET AVOID ALCOHOL Prescriptions: Colchicine 0.6 mg PO DAILY #30 capsule Colchicine 0.6 mg PO DAILY #11 capsule predniSONE [Deltasone] 20 mg PO DAILY #5 tablet Ibuprofen [Motrin] 800 mg PO Q8HR PRN #30 tablet PRN Reason: Pain, Moderate (4-6) Referrals: DANIS FARMER MD [Staff Physician] - 3-5 Days Time of Disposition: 18:46
== END 2019-09-20 19:15 | disposition home or self-care (01) ==
LOC: ED 18:37
DX: M10.9 Gout, unspecified (principal); M25.572 Pain in left ankle and joints of left foot; I10 Essential (primary) hypertension; J45.909 Unspecified asthma, uncomplicated; Z79.1 Long term (current) use of non-steroidal anti-inflammatories (NSAID); Z79.899 Other long term (current) drug therapy
CPT/HCPCS: 99282; J7512